=== PATIENT | female | born 1960 | race Caucasian/White ===

== ENCOUNTER → 2020-01-25 08:16 | Outpatient (CLI) | payer OTHER, SELFPAY ==
--- NOTE | ~2020-01-25 | CT_ITS ---
EXAMINATION: CT sinus wo con DATE: 01/25/2020 08:39 INDICATION: Chronic sinusitis TECHNIQUE: Computed tomography (CT) of the paranasal sinuses was performed without intravenous contra st. The dose-length product was 287.97 mGy-cm. Automated exposure control and iterative reconstructio n technique were employed. COMPARISON: CT dated 04/03/2011 FINDINGS: There is mild mucosal thickening of the frontal, ethmoid, maxillary and sphenoid sinuses. N o air-fluid levels. No significant mucoperiosteal reaction. There is rightward nasal septal deviation . Ostiomeatal pain and units appear surgically absent. Mastoids are pneumatized. IMPRESSION: 1. Mild pansinusitis, likely chronic. Reviewed, dictated and finalized at location A.
== END ==
PROVIDERS: Visit Provider Otolaryngology
DX: J32.9 Chronic sinusitis, unspecified (principal)
CPT/HCPCS: 70486

== ENCOUNTER → 2020-12-09 10:48 | Outpatient (CLI) | payer OTHER, SELFPAY ==
--- NOTE | ~2020-12-09 | MM_ITS ---
EXAMINATION: MM screening shayla BI w renaldo HISTORY: Screening TECHNIQUE: Craniocaudal and mediolateral oblique 3-D tomosynthesis images were obtained and synthetic 2-D images were generated. CAD analysis was submitted and interpreted. COMPARISON: No prior mammogram is available for comparison at this institution. BREAST PARENCHYMAL COMPOSITION: There are scattered areas of fibroglandular density. FINDINGS: There are bilateral breast asymmetries and small masses in both breasts. There are no suspi cious calcifications in either breast. IMPRESSION: 1. Bilateral breast asymmetries/masses. 2. Additional mammographic views and possible breast ultrasound are recommended. BI-RADS Category 0: Incomplete: Needs additional imaging evaluation. Reviewed, dictated and finalized at location A. IMPRESSION: 1. Bilateral breast asymmetries/masses. 2. Additional mammographic views and possible breast ultrasound are recommended . BI-RADS Category 0: Incomplete: Needs additional imaging evaluation.
--- NOTE | ~2020-12-09 | DEXA_ITS ---
Bone Density Report Name: Marita Sepulveda Age: 60 Sex: Female Ethnicity: White Date of : 1960 Indication: postmenopausal; screening for osteoporosis; hysterectomy; Referring Provider: TERESA, AZRA Lee Study: Bone densitometry was performed. Exam Date: December 09, 2020 Accession number: [id number] Bone Density: Region BMD T-score Z-score Classification AP Spine (L1-L4) 0.763 -2.6 -1.1 Osteoporosis Femoral Neck (Left) 0.765 -0.8 0.6 Normal Total Hip (Left) 0.833 -0.9 0.1 Normal Femoral Neck (Right) 0.694 -1.4 -0.1 Osteopenia Total Hip (Right) 0.797 -1.2 -0.2 Osteopenia Total Hip Mean 0.815 -1.1 -0.1 Osteopenia World Health Organization criteria for BMD impression classify patients as: Normal (T-score at or above -1.0), Osteopenia (T-score between -1.0 and -2.5), or Osteoporosis (T-score at or below -2.5). 10-year Fracture Risk: FRAX not reported because: Some T-score for Spine Total or Hip Total or Femoral Neck at or below -2.5 Clinical Information Provided by Patient: Has used the following medications: Vitamin D, Calcium Has the following medical conditions: Hysterectomy Patient maximum height was 65 Menopause Age: 44 No regular weight bearing exercise Drinks caffeinated beverages Onset of menses at age 15 Number of children 2 Impression: The patient has osteoporosis, based on the Total Spine T-score. Discussion: INCREASED RISK OF FRACTURE. BONE DENSITY IS UNDESIRABLY LOW AT ONE OR MORE SKELETAL SITES, CONSISTENT WITH POSTMENOPAUSAL OSTEOPOROSIS. This patient's lowest T-score meets the World Health Organization's (WHO) criteria for osteoporosis at one or more sites (T-score -2.5 or below). In untreated patients, the risk of osteoporotic fracture increases approximately two-fold for each 1.0 SD decrease in T-score. Low bone density is not the only risk factor for fracture; also consider factors such as patient's age, frailty or poor health, risk of falling, risk of injury, previous osteoporotic fracture, family history of osteoporosis, cigarette smoking, low body weight, etc. Not everyone with low bone mineral density has osteoporosis; osteomalacia and other metabolic bone disorders should also be considered. Patients who have osteoporosis should be evaluated for specific diseases and conditions (secondary causes) that may cause or contribute to bone loss. The [place] Association of Clinical Endocrinologists (AACE) and National Osteoporosis Foundation (NOF) recommend pharmacologic intervention for all postmenopausal women whose T-score is in this range. The patient should follow a healthful lifestyle (good nutrition with adequate calcium and vitamin D, and appropriate weight-bearing exercise). Follow-Up: Consider a repeat BMD and Vertebral Fracture Assessment (VFA) exam in 2 years or sooner if med
== END ==
PROVIDERS: PCP Internal Medicine; Visit Provider Internal Medicine
DX: Z12.31 Encounter for screening mammogram for malignant neoplasm of breast (principal); R92.8 Other abnormal and inconclusive findings on diagnostic imaging of breast; Z78.0 Asymptomatic menopausal state; M81.0 Age-related osteoporosis without current pathological fracture; M85.851 Other specified disorders of bone density and structure, right thigh; Z13.820 Encounter for screening for osteoporosis
CPT/HCPCS: 77063; 77067; 77080

== ENCOUNTER → 2021-01-12 07:37 | Outpatient (CLI) | payer OTHER, SELFPAY ==
--- NOTE | ~2021-01-12 | MMUS_ITS ---
EXAMINATION: MM diagnostic shayla RT w renaldo, US breast RT limited HISTORY: New 5 mm mass in upper outer quadrant right breast on 12/09/2020 screening mammogram TECHNIQUE: Additional 3-D tomosynthesis images of the right breast were performed and synthetic 2-D i mages were generated. CAD analysis was submitted and interpreted. High resolution upper inner quadran t right breast ultrasound was performed. COMPARISON: 12/09/2020 bilateral digital screening mammogram FINDINGS: MAMMOGRAPHIC FINDINGS: There is a 5 mm circumscribed opacity in the upper inner quadrant of the right breast. ULTRASOUND: There is anti-parallel mildly irregular hypoechoic lesion at 1:00 3 cm from the nipple. The lesion me asures up to 4.9 mm in depth and 4 mm transverse dimension. There is no posterior shadowing. There is a nearby vessel on color flow imaging. Ultrasound-guided aspiration attempt should be made. If this fails to evacuate, then ultrasound-guided biopsy should be performed. IMPRESSION: 1. Anti-parallel mildly irregular 4.9 mm hypoechoic lesion at 1:00 3 cm from nipple 2. Ultrasound-guided aspiration attempt should be made; if this fails to aspirate, then immediate ult rasound-guided biopsy should be performed. BI-RADS category 4, suspicious findings. Reviewed, dictated and finalized at location A. IMPRESSION: 1. Anti-parallel mildly irregular 4.9 mm hypoechoic lesion at 1:00 3 cm from ni pple 2. Ultrasound-guided aspiration attempt should be made; if this fails to aspira te, then immediate ultrasound-guided biopsy should be performed. BI-RADS category 4, suspicious findings.
== END ==
PROVIDERS: PCP Internal Medicine; Visit Provider Internal Medicine
DX: R92.8 Other abnormal and inconclusive findings on diagnostic imaging of breast (principal)
CPT/HCPCS: 76642; 77061; 77065; G0279

== ENCOUNTER 2021-02-01 08:56 | Outpatient (CLI) | payer OTHER, SELFPAY ==
--- NOTE | ~2021-02-01 | US_ITS ---
EXAMINATION: US_BCARIMG_US DATE: 02/01/2021 10:22 CDT INDICATION: Abnormal mass seen on prior examination. TECHNIQUE: Survey imaging of the right breast was performed. The cyst(s) at the 1:00 position 3 cm f rom the nipple was targeted for aspiration. The procedure and its risk and benefits were discussed w ith the patient. Risks included but were not limited to pain, bleeding and infection. The patient ve rbalized understanding and provided written consent. A time-out was performed to document the patient's name, date of , and site of procedure. The u pper outer quadrant of the patient's right breast was prepped and draped in usual sterile fashion. 1 % lidocaine was used for local anesthesia. Utilizing ultrasound guidance, a 18-gauge needle was adva nced into the lesion in the right breast. Aspiration was performed. The patient tolerated procedure without immediate complication. Sterile bandages were applied over t he aspiration site(s).] FINDINGS: Successful ultrasound-guided aspiration of 5 mm cyst. Clear fluid obtained with complete ev acuation of the cyst during aspiration. IMPRESSION: 1. Complete evacuation of 5 mm right breast cyst without complication. Routine yearly screening mammogram and regular clinical breast examination are recommended. BI-RADS CATEGORY 2 - BENIGN FINDINGS Reviewed, dictated and finalized at location A.
== END 2021-02-01 08:57 | disposition home or self-care (01) ==
PROVIDERS: PCP Internal Medicine; Visit Provider Internal Medicine
DX: N60.01 Solitary cyst of right breast (principal)
CPT/HCPCS: 19000; 76942

== ENCOUNTER 2022-10-04 01:55 | Day surgery (SDC) | payer OTHER, SELFPAY ==
[2022-09-14 15:26] VITALS: BMI 26.0
--- NOTE | 2022-10-03 19:49 | PM.HPGS ---
History of Present Illness History of Present Illness Consent: Risks, benefits, and alternatives have been discussed and questions answered. Patient agrees to proceed with procedure. Chief complaint: neoplasm screening, GERD Narrative: Marita Sepulveda is a 62 year old female with persistent heartburn, and due for colon cancer screening, Father had colon Ca. She did have polyps at 1 time also. She suffers from a great deal of abdominal bloating. Her abdomen gets very tight. She does not pass much gas or belch however. She does not use a CPAP machine. About 3 hours after meal she will get severe indigestion in the mid chest. She does take doxycycline twice a day but does not have odynophagia. Her weight is stable Review of Systems Review of Systems: All systems reviewed & are unremarkable except as noted in HPI and below PMFSH Social History Social History Smoking status: Never smoker Alcohol intake: current Alcohol use details: on occaison Substance use: never Substance use type: does not use Living arrangements: with family Spiritual care concerns: No Meds Home Medications and Allergies Home Medications Medication Instructions Recorded Confirmed Type Fish Oil 1 tab-cap BYMOUTH DAILY 09/14/22 10/04/22 History Vitamin D3 1 tab-cap PO DAILY 09/14/22 10/04/22 History calcium acetate-magnesium carb 1 tab-cap PO DAILY 09/14/22 10/04/22 History doxycycline hyclate 20 mg tablet 20 mg PO BID 09/14/22 10/04/22 History multivitamin 1 tab-cap PO DAILY 09/14/22 10/04/22 History Allergies Allergy/AdvReac Type Severity Reaction Status Date / Time No Known Allergies Allergy Verified 10/04/22 08:12 Exam Const: General: alert Orientation/consciousness: patient oriented x3 Resp: Auscultation: clear to auscultation bilaterally Cardio: Rhythm: regular rhythm GI: GI Palp: Yes Soft to palpation and No Tenderness to palpation present (GI) Neuro: General: patient oriented x3 Assessment and Plan Assessment and plan (1) GERD (gastroesophageal reflux disease): Code(s): K21.9 - Gastro-esophageal reflux disease without esophagitis Status: Acute Assessment and Plan: EGD with possible biopsy or dilatation or cautery. (2) Colon cancer screening: Code(s): Z12.11 - Encounter for screening for malignant neoplasm of colon Status: Acute Assessment and Plan: Colonoscopy with possible biopsy or polypectomy or cautery or injection of substances.
[2022-10-04 08:13] VITALS: BP 163/78; PULSE 62; RESP 16; TEMP 36.8; O2SAT 98; BMI 25.2
[2022-10-04] MEDS: LACTATED RINGERS 1,000 ML 150 ML IV CONT (08:21)
--- NOTE | 2022-10-04 09:04 | P.PNAN_ITS ---
Anes - Initial Pre Proc Eval Procedure: Operation Date: 10/04/22 09:30 Proposed Procedures p Esophagogastroduodenoscopy & Screening Colonoscopy - Lamonte Butcher MD Date/Time: 10/04/22 09:04 Surgeon: Lamonte Butcher MD Pre Op Diagnosis: neoplasm screening, GERD Patient Data Age: 62 Gender: F Height: 1.65 m Weight: 68.9 kg Last Vital Signs Temp 98.2 F 10/04/22 08:13 Pulse 62 10/04/22 08:13 Resp 16 10/04/22 08:13 BP 163/78 H 10/04/22 08:13 Pulse Ox 98 10/04/22 08:13 O2 Del Method Room Air 10/04/22 08:13 Allergies Allergy/AdvReac Type Severity Reaction Status Date / Time No Known Allergies Allergy Verified 10/04/22 08:12 Home Medications Medication Instructions Recorded Confirmed Type Fish Oil 1 tab-cap BYMOUTH DAILY 09/14/22 10/04/22 History Vitamin D3 1 tab-cap PO DAILY 09/14/22 10/04/22 History calcium acetate-magnesium carb 1 tab-cap PO DAILY 09/14/22 10/04/22 History doxycycline hyclate 20 mg tablet 20 mg PO BID 09/14/22 10/04/22 History multivitamin 1 tab-cap PO DAILY 09/14/22 10/04/22 History Patient hx anesthesia problems: none Family hx anesthesia problems: none Results Review: All pre-operative results and documents have been reviewed as part of the pre- operative evaluation. [facility] Social History Social History Smoking status: Never smoker Alcohol intake: current Alcohol use details: on occaison Substance use: never Substance use type: does not use Living arrangements: with family Spiritual care concerns: No Anes - Eval Final PreProcedure Day of Procedure 10/04/22 09:04 Patient weight: normal Heart: regular rate and rhythm Lungs: clear to auscultation Airway: Mallampati scale class II Neurological: alert and oriented Last oral intake: >/= 8 hours ASA classification: II Emergent: no Anesthetic plan: proceed Anesthesia type and monitoring: general GIVS and standard monitoring Results Review: All pre-operative results and documents have been reviewed as part of the pre- operative evaluation. Informed Consent: The patient's anesthetic plan and its attendant risks and benefits were discussed with the patient/family/POA. Questions were solicited and answers provided to the satisfaction of the patient/family/POA.
[2022-10-04] MEDS: BENZOCAINE (*SP) 60 ML SPRAY CAN (HURRICAINE) 1 SPRAY MUCOUS MEM (09:16)
--- NOTE | 2022-10-04 09:45 | SUR.OPER ---
EGD START: 923; END: 928. COLONOSCOPY START: 935; END: 943.
[2022-10-04 09:47] VITALS: BP 152/74; PULSE 59; RESP 20; O2SAT 99
[2022-10-04 09:57] VITALS: BP 148/95; PULSE 59; RESP 22; O2SAT 99
[2022-10-04 10:07] VITALS: BP 167/96; PULSE 53; RESP 20; O2SAT 99
== END 2022-10-04 10:25 | disposition home or self-care (01) ==
PROVIDERS: PCP Internal Medicine; Visit Provider Internal Medicine Gastroenterology
PROC: 0DJ08ZZ Inspection of Upper Intestinal Tract, Via Natural or Artificial Opening Endoscopic (ICD-10-PCS; CPT 43235; principal; 2022-10-04 09:30)
DX: Z12.11 Encounter for screening for malignant neoplasm of colon (principal); K57.30 Diverticulosis of large intestine without perforation or abscess without bleeding; K64.8 Other hemorrhoids; Z80.0 Family history of malignant neoplasm of digestive organs; K21.9 Gastro-esophageal reflux disease without esophagitis; R11.0 Nausea
CPT/HCPCS: 45378; 43239; 87081; 88305; J2704; J7120

== ENCOUNTER 2022-10-18 09:35 | Outpatient (CLI) | payer OTHER, SELFPAY ==
--- NOTE | ~2022-10-18 | US_ITS ---
US abdomen complete EXAMINATION: US Abdomen Complete INDICATION: Abdominal pain PROCEDURE: Realtime High Resolution abdomen ultrasound. COMPARISON: No prior studies for comparison FINDINGS: There is a 7 mm gallbladder polyp. No gallstones, gallbladder wall thickening or pericholec ystic fluid. Common bile duct measures 6 mm. Liver echotexture within normal limits without focal mass. There is a liver cyst measuring 1.4 cm. Pa ncreas within normal limits. Pancreatic tail is obscured by bowel gas. Spleen is unremarkeable. Saji al echotexture is within normal limits bilaterally without hydronephrosis, contour deforming mass or renal stone. Right kidney measures 10.7 cm. Left kidney measures 10.7 cm. Visualized aspects of the aorta and IVC are within normal limits. Portal vein is patent. No sonograph ic Ashley's sign indicated by the technologist. IMPRESSION: 1: Gallbladder polyp measuring 7 mm. Reviewed, dictated and finalized at location L.
== END 2022-10-18 09:36 | disposition home or self-care (01) ==
PROVIDERS: PCP Internal Medicine; Visit Provider Internal Medicine Gastroenterology
DX: R10.9 Unspecified abdominal pain (principal); K82.4 Cholesterolosis of gallbladder
CPT/HCPCS: 76700

== ENCOUNTER → 2023-06-27 10:13 | Outpatient (CLI) | payer OTHER, SELFPAY ==
--- NOTE | ~2023-06-27 | MM_ITS ---
EXAMINATION: MM screening [facility] BI w renaldo HISTORY: Screening TECHNIQUE: Craniocaudal and mediolateral oblique 3-D tomosynthesis images were obtained and synthetic 2-D images were generated. CAD analysis was submitted and interpreted. COMPARISON: Comparison to multiple prior studies sequentially, with oldest reviewed study dated 11/27. BREAST PARENCHYMAL COMPOSITION: Not dense: There are scattered areas of fibroglandular density. FINDINGS: Stable benign-appearing mass upper central aspect of the right breast. There is no evidence of suspicious mass, calcification, or architectural distortion to suggest malignancy in either breas t. There has been no suspicious interval change. IMPRESSION: 1. No mammographic evidence of malignancy. 2. Recommend routine screening mammography in one year. BI-RADS Category 2: Benign finding(s). Reviewed, dictated and finalized at location A. [employer]
== END ==
PROVIDERS: PCP Internal Medicine; Visit Provider Internal Medicine
DX: Z12.31 Encounter for screening mammogram for malignant neoplasm of breast (principal)
CPT/HCPCS: 77063; 77067

== ENCOUNTER 2024-05-02 09:52 | Outpatient (CLI) | payer OTHER, SELFPAY ==
--- NOTE | ~2024-05-02 | DEXA_ITS ---
Bone Density Report Name: CHEYENNE GUSMAN Age: 63 Sex: Female Ethnicity: White Date of : 1960 Indication: postmenopausal; screening for osteoporosis; hysterectomy; Referring Provider: KAJAL*, AZRA Lee Study: Bone densitometry was performed. Exam Date: May 02, 2024 Accession number: [id number] Bone Density: Region BMD T-score Z-score Classification AP Spine(L1-L4) 0.753 -2.7 -0.9 Osteoporosis Femoral Neck (Left) 0.721 -1.1 0.3 Osteopenia Total Hip (Left) 0.877 -0.5 0.7 Normal Femoral Neck (Right) 0.715 -1.2 0.3 Osteopenia Total Hip (Right) 0.878 -0.5 0.7 Normal Total Hip Mean 0.878 -0.5 0.7 Normal World Health Organization criteria for BMD impression classify patients as: Normal (T-score at or above -1.0), Osteopenia (T-score between -1.0 and -2.5), or Osteoporosis (T-score at or below -2.5). 10-year Fracture Risk: FRAX not reported because: Some T-score for Spine Total or Hip Total or Femoral Neck at or below -2.5 Clinical Information Provided by Patient: Has used the following medications: Vitamin D, Calcium Has the following medical conditions: Hysterectomy Patient maximum height was 64.5 Menopause Age: 44 No regular weight bearing exercise Drinks caffeinated beverages Onset of menses at age 15 Number of children 2 Impression: The patient has osteoporosis, based on the Total Spine T-score. Discussion: INCREASED RISK OF FRACTURE. BONE DENSITY IS UNDESIRABLY LOW AT ONE OR MORE SKELETAL SITES, CONSISTENT WITH POSTMENOPAUSAL OSTEOPOROSIS. This patient's lowest T-score meets the World Health Organization's (WHO) criteria for osteoporosis at one or more sites (T-score -2.5 or below). In untreated patients, the risk of osteoporotic fracture increases approximately two-fold for each 1.0 SD decrease in T-score. Low bone density is not the only risk factor for fracture; also consider factors such as patient's age, frailty or poor health, risk of falling, risk of injury, previous osteoporotic fracture, family history of osteoporosis, cigarette smoking, low body weight, etc. Not everyone with low bone mineral density has osteoporosis; osteomalacia and other metabolic bone disorders should also be considered. Patients who have osteoporosis should be evaluated for specific diseases and conditions (secondary causes) that may cause or contribute to bone loss. The [place] Association of Clinical Endocrinologists (AACE) and National Osteoporosis Foundation (NOF) recommend pharmacologic intervention for all postmenopausal women whose T-score is in this range. The patient should follow a healthful lifestyle (good nutrition with adequate calcium and vitamin D, and appropriate weight-bearing exercise). Follow-Up: Consider a repeat BMD and Vertebral Fracture Assessment (VFA) exam in 2 years or sooner if medically necessary, to reassess this patient's status. Reported by: SONIA on 05/02/2024 10:20:00 AM. Reviewed, dictated and finalized at location A. NEO
== END 2024-05-02 09:53 | disposition home or self-care (01) ==
LOC: ANHIMG 09:55
PROVIDERS: PCP Internal Medicine; Visit Provider Internal Medicine
DX: M81.0 Age-related osteoporosis without current pathological fracture (principal); M85.89 Other specified disorders of bone density and structure, multiple sites; Z13.820 Encounter for screening for osteoporosis
CPT/HCPCS: 77080

== ENCOUNTER 2024-07-06 09:51 | Outpatient (CLI) | payer MEDICARE, SELFPAY | END 2024-07-06 09:52 | disposition home or self-care (01) | LOC: MICIMG 09:53 | PROVIDERS: PCP Internal Medicine; Visit Provider Internal Medicine | DX: Z12.31 Encounter for screening mammogram for malignant neoplasm of breast (principal); N63.24 Unspecified lump in the left breast, lower inner quadrant; R92.8 Other abnormal and inconclusive findings on diagnostic imaging of breast | CPT/HCPCS: 77063; 77067 ==

== ENCOUNTER 2024-07-28 10:13 | Outpatient (CLI) | payer MEDICARE, SELFPAY ==
--- NOTE | ~2024-07-28 | MMUS_ITS ---
EXAMINATION: MM diagnostic shayla LT w renaldo, US breast LT limited HISTORY: 64-year-old woman with a family history of breast cancer presents for diagnostic evaluation of a lower inner left breast asymmetry, seen on screening mammography dated 07/06/2024 TECHNIQUE: Additional 3-D tomosynthesis images of the left breast were performed and synthetic 2-D im ages were generated. CAD analysis was submitted and interpreted. High resolution limited left breast ultrasound was performed. COMPARISON: 07/06/2024 and dating back to 11/27/2016 BREAST PARENCHYMAL COMPOSITION:Not Dense. There are scattered areas of fibroglandular density. FINDINGS: MAMMOGRAPHIC FINDINGS: Within the lower inner left breast mass partially effaces on spot compression for which a summation a rtifact is suspected (overlapping fibroglandular tissues). This is located approximately 7 cm from the nipple for which focused ultrasound will be performed. ULTRASOUND: At the 8:00 position of the left breast approximately 3 cm from the nipple is a well-circumscribed fo cus of decreased echogenicity measuring 2.7 x 3.3 x 2.4 mm, which is an incidental finding and does n ot correspond to the abnormality seen as more conspicuous on screening mammography. This is a morphol ogically benign finding for which no further follow-up is needed. At the 9:00 position of the left breast approximately 3 cm from the nipple are multiple anechoic avas cular well-circumscribed foci with increased through transmission for which simple cysts are suspecte d and for which no further follow-up is needed. These findings also do not correspond to the abnormality described as more conspicuous on screening m ammography. At the 9:00 position of the left breast approximately 4 cm from the nipple is a well-circumscribed, a vascular focus of decreased echogenicity measuring 3.0 x 3.3 x 1.8 mm, similar in morphology to the 8 :00 finding, for which no further follow-up is needed. These findings also do not correspond to the abnormality described as more conspicuous on screening m ammography. Sonographic evaluation of the remainder of the lower inner left breast demonstrates benign fibrogland ular elements without a cystic or solid lesion of concern. IMPRESSION: No mammographic/tomographic or sonographic evidence to suggest the presence of malignancy. Findings seen on screening mammography which likely represent a summation artifact (overlapping fibro glandular tissues) for which no further follow-up is needed. Resumption of yearly mammography is recommended. BI-RADS Category 2: Benign finding(s). Reviewed, dictated and finalized at location A. IMPRESSION: No mammographic/tomographic or sonographic evidence to suggest the presence of malignancy. Findings seen on screening mammography which likely represent a summation artif act (overlapping fibroglandular tissues) for which no further follow-up is need ed. Resumption of yearly mammography is recommended. BI-RADS Category 2: Benign finding(s).
--- OUTSIDE RECORDS SUMMARY | 2024-07-28 12:02 | XMS_ITS | Referral Summary ---
Author Organization [facility] [address] [place] [id number] Care Team Providers Care [employer] Developer Name Role Phone Morgan Fung MD Primary Care Provider Allergies No known active allergies Medications doxycycline (PERIOSTAT) 20 mg tablet Take 1 tablet (20 mg total) by mouth 2 (two) times a day 10/09/2022 Active benzonatate (TESSALON) 100 mg capsuleIndicati ons:Cough Take 1 capsule (100 mg total) by mouth 3 (three) times a day as needed for cough 21 capsule 11/04/2022 Active Active Problems No known active problems Social History Tobacco Use Types Packs/Day Years Used Date Smoking Tobacco: Never Assessed Comments No Sex and Gender Information Value Date Recorded Sex Assigned at Not on file 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 Gender Identity Not on file Sexual Orientation Not on file Last Filed Vital Signs Vital Sign Reading Time Taken Comments Blood Pressure 180/102 11/04/2022 8:14 AM CDT Pulse 73 11/04/2022 8:14 AM CDT Temperature 37 C (98.6 F) 11/04/2022 8:14 AM CDT Respiratory Rate - - Oxygen Saturation - - Inhaled Oxygen Concentration - - Weight 69.9 kg (154 lb 3.2 oz) 11/04/2022 8:14 A M CDT Height 170 cm (5' 6.93 ) 11/04/2022 8:14 AM CDT Body Mass Index 24.2 11/04/2022 8:14 AM CDT Plan of Treatment Not on file Procedures Procedure Name Priority Date/Time Associated Diagnosis Comments SCREENING MAMMOGRAM Routine 08/03/2014 1 0:22 AM CDT from Last 3 Months or Most Recently Relevant to Health Maintenance Results * Screening Mammogram (08/03/2014 10:22 AM CDT) Anatomical Region Laterality Modality Breast N/A Mammography 08/03/2014 10:2 2 AM CDT Narrative 08/03/2014 9:21 PM CDT ERIN KNAPP M.D. FINAL REPORT ACC# Date Time Exam [id number] Aug 03, 2014 10:22:00 [facility] [address] Screening Mamm Bilat Technologist(s): Carito Hernandez; ; EXAMINATION: Mammogram Technique: Bilateral Full-Field Digital Screening Mammogram was performed. Views obtained: bilateral craniocaudal and bilateral mediolateral oblique. Computer Aided Detection was performed with Plinga.3 version 9.3. Mammogram Findings: The present examination has been compared to prior imaging studies performed at [facility] on 04/27/2009, and at [facility] on 12/04/2011 and 11/08/2010. There are scattered fibroglandular densities. There is no suspicious abnormality in either breast. IMPRESSION: Annual screening mammography is recommended. OVERALL FINAL ASSESSMENT: BI-RADS CATEGORY 1: Negative. Requested By: Dictated By: ERIN KNAPP M.D. on Aug 03 2014 9:21P This document has been electronically signed by: ERIN KNAPP M.D. on Aug 03 2014 9:21P [id number] Procedure Note Provider, MD tSanley - 08/29/2016 ERIN KNAPP M.D. FINAL REPORT ACC# Date Time Exam [id number] Aug 03, 2014 10:22:00 [facility] [address] Screening Mamm Bilat Technologist(s): Carito Hernandez; ; EXAMINATION: Mammogram Technique: Bilateral Full-Field Digital Screening Mammogram was performed. Views obtained: bilateral craniocaudal and bilateral mediolateral oblique. Computer Aided Detection was performed with [employer] 1.3 version 9.3. Mammogram Findings: The present examination has been compared to prior imaging studies performed at [facility] on 04/27/2009, and at [facility] on 12/04/2011 and 11/08/2010. There are scattered fibroglandular densities. There is no suspicious abnormality in either breast. IMPRESSION: Annual screening mammography is recommended. OVERALL FINAL ASSESSMENT: BI-RADS CATEGORY 1: Negative. Requested By: Dictated By: ERIN KNAPP M.D. on Aug 03 2014 9:21P This document has been electronically signed by: ERIN KNAPP M.D. on Aug 03 2014 9:21P [id number] Historical Provider MD [facility] M[facility] PROCEDURES Yulissa l Result from Last 3 Months or Most Recently Relevant to Health Maintenance Insurance [facility] [id number] Care Teams [employer] Developer Relationship Specialty Start Date End Date Morgan Fung MD [address] [place] [address] PCP - General Internal Medicine 11/04/22
--- OUTSIDE RECORDS SUMMARY | 2024-07-28 12:02 | XMS_ITS | Clinical Summary ---
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 Gender Identity Not on file Sexual Orientation Not on file Obstetrics History Last Filed Vital Signs Vital Sign Reading [...] 11/04/2022 8:14 AM CDT Plan of Treatment Health Maintenance Due Date Last Done Comments Cervical Cancer Screening 1959 Colon Cancer Screening-Colonoscopy 1959 Depression Screening 1959 Fall Risk Assessment 1959 Hepatitis C Screening 1959 Osteoporosis Screening-Bone Density Scan 1959 Hepatitis B Screening 1977 Pneumococcal vaccine 65+ (1 of 1 - PCV) 2009 Breast Cancer Screening-Mammogram 08/04/2015 015 Zoster Vaccine (2 of 2) 05/12/2020 03/17/2020 Covid-19 Vaccine (6 - 2023-2 5 season) 2024 03/09/2022, 10/12/2021, 04/03/2021, Additional history exists Influenza Vaccine (#1) 2024 02/22/2022, 2019 Well Visit 65+ 2024 DTaP/Tdap/Td Vaccine (2 - Td or Tdap) 11/23/2029 11/24/2019 Procedures Procedure Name Priority Date/Time Associated Diagnosis Comments SCREENING MAMMOGRAM Routine 08/03/2014 1 0:22 AM CDT from Last 3 Months or Most Recently Relevant to Health Maintenance Results * Screening Mammogram (08/03/2014 10:22 AM CDT) Anatomical Region Laterality Modality Breast N/A Mammography 08/03/2014 10:2 2 AM CDT Narrative 08/03/2014 9:21 PM CDT ERIN KNAPP M.D. FINAL REPORT ACC# Date Time Exam [id number] Aug 03, 2014 10:22:00 [facility] [id number] Screening Mamm Bilat Technologist(s): Carito Hernandez; ; EXAMINATION: Mammogram Technique: Bilateral Full-Field Digital Screening Mammogram was performed. Views obtained: bilateral craniocaudal and bilateral mediolateral oblique. Computer Aided Detection was performed with Pavlok.3 version 9.3. Mammogram Findings: The present examination has been compared to prior imaging studies performed at [facility] on 04/27/2009, and at [facility] on 12/04/2011 and 11/08/2010. There are scattered fibroglandular densities. There is no suspicious abnormality in either breast. IMPRESSION: Annual screening mammography is recommended. OVERALL FINAL ASSESSMENT: BI-RADS CATEGORY 1: Negative. Requested By: Dictated By: ERIN KNAPP M.D. on Aug 03 2014 9:21P This document has been electronically signed by: ERIN KNAPP M.D. on Aug 03 2014 9:21P [id number] Procedure Note Provider, MD Stanley - 08/29/2016 ERIN KNAPP M.D. FINAL REPORT ACC# Date Time Exam [id number] Aug 03, 2014 10:22:00 [facility] [id number] Screening Mamm Bilat Technologist(s): Carito Hernandez; ; EXAMINATION: Mammogram Technique: Bilateral Full-Field Digital Screening Mammogram was performed. Views obtained: bilateral craniocaudal and bilateral mediolateral oblique. Computer Aided Detection was performed with Pavlok.3 version 9.3. Mammogram Findings: The present examination has been compared to prior imaging studies performed at [facility] on 04/27/2009, and at [facility] on 12/04/2011 and 11/08/2010. There are scattered fibroglandular densities. There is no suspicious abnormality in either breast. IMPRESSION: Annual screening mammography is recommended. OVERALL FINAL ASSESSMENT: BI-RADS CATEGORY 1: Negative. Requested By: Dictated By: ERIN KNAPP M.D. on Aug 03 2014 9:21P This document has been electronically signed by: ERIN KNAPP M.D. on Aug 03 2014 9:21P [id number] Historical Provider MD [facility] PROCEDURES Yulissa l Result from Last 3 Months or Most Recently Relevant to Health Maintenance Insurance [facility] [id number] Care Teams Greenskeeper Laborer Relationship Specialty Start Date End Date Morgan Fung MD [address] [facility] [address] [place] [address] PCP - General Internal Medicine 11/04/22
--- OUTSIDE RECORDS SUMMARY | 2024-07-28 12:02 | XMS_ITS | Encounter Summary ---
Author Organization [employer] Address [address] [place] [address] Care Team Providers Care It Analyst Name Role Phone Unavailable Primary Care Provider Unavailabl e Encounter Details Date Type Department Care Team (Late st Contact Info) Description 10/04/2004 Outpatient Historical [facility] Support Serv. ([facility]) [address] 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
--- OUTSIDE RECORDS SUMMARY | 2024-07-28 12:02 | XMS_ITS | Clinical Summary ---
Author Organization [facility] Address [address] 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 Gender Identity Not on file Sexual Orientation Not on file Plan of Treatment Health Maintenance Due Date Last Done Comments DTAP/TDAP/TD VACCINES (1 - Tdap) 1978 PAP SMEAR 1989 COLORECTAL SCREENING 2004 Colorectal Cancer Screening 2004 FIT-DNA Q 3 years 2004 FIT/FOBT Q 1 year 2004 Flex Sig/CT Colonography Q 5 years 2004 PNEUMOCOCCAL VACCINE 50+ YEARS (1 of 1 - PCV) 2009 ZOSTER VACCINE (1 of 2) 2009 BREAST CANCER SCREENING 11/27/2017 11/28/19 17, 11/27/2016 INFLUENZA VACCINE (#1) 2023 OSTEOPOROSIS SCREENING 2024 RSV VACCINE (60+ or ) (1 - 1-dose 75+ series) 2034 PNEUMOCOCCAL VACCINE 0-49 YEARS Aged Out No longer eligible b ased on patient's age to complete this topic Insurance RX [facility] [employer]
--- OUTSIDE RECORDS SUMMARY | 2024-07-28 12:02 | XMS_ITS | CONTINUITY OF CARE DOCUMENT ---
Author Name hever kathleen Address Unknown Organization [facility] Address [address] [place] [address] Phone [phone] Care Team Providers Care Cash Clerk Name Role Phone hever kathleen Unavailable Unavailable INSURANCE PROVIDERS Payer name Policy type / Coverage type Tate red libertarian ID [employer]NA CHOICE POS II Commercial insurance company [id number]
--- OUTSIDE RECORDS SUMMARY | 2024-07-28 12:02 | XMS_ITS | Encounter Summary ---
Author Organization [employer] Address 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 Gender Identity Not on file Sexual Orientation Not on file documented as of this encounter Plan of Treatment Not on file documented as of this encounter Procedures Procedure Name Priority Date/Time Associated Diagnosis Comments POC , URINE Routine 10/10/2004 8:10 AM CDT HEMOGLOBIN AND HEMATOCRIT Routine 10/04/2004 8:43 AM CDT documented in this encounter Results * POC , URINE (10/10/2004 8:10 AM CDT) HCG QUAL URINE Negative Negative INTER FACE SYSTEM SPECIFIC GRAVITY UA 1.020 1.001 - 1.035 INTERFACE SYSTEM 10/10/2004 8:10 AM CDT Jaspreet Greenwood MD POINT OF CARE TESTING Final Shanelle aiken INTERFACE SYSTEM Refer to clinic/hospital department * HEMOGLOBIN AND HEMATOCRIT (10/04/2004 8:43 AM CDT) HEMOGLOBIN 12.2 11.8 - 14.8 g/dL INTERFACE SYSTEM HEMATOCRIT 38.1 35.5 - 44.0 % INTERFACE SYSTEM 10/04/2004 8:43 AM CDT Jaspreet Greenwood MD HEMATOLOGY ORDERABLES Final Shanelle aiken INTERFACE SYSTEM Refer to clinic/hospital department documented in this encounter Visit Diagnoses Diagnosis Endometrial hyperplasia, unspecified- Primary documented in this encounter
--- OUTSIDE RECORDS SUMMARY | 2024-07-28 12:03 | XMS_ITS | Data Portability ---
Author Organization [place] [facility] [place], Main Office Address [address] [place] [address] Assessment No assessment recorded. Plan of Treatment Reminders Order Date Submit Date Provider Last Modified By Organization Details Last Modified Time Details Appointments None recorded. Lab lipid panel, serum 2023 024 [facility], [address] [place] [address], [place], [address], 09:43:56 CMP, serum or plasma 2023 024 [email or web address] [facility], [address] [place] [address], [address], 09:43:56 vitamin D, 25-hydroxy , total, serum 2023 024 [email or web address] [facility], [address] [place] [address], [place], [address], 14:21:20 CBC w/ auto diff 2023 024 [id number] [facility], [address] [place] [address], [place], [address], 4 14:21:20 TSH, ultra-sens itive, serum 2023 024 [email or web address] [facility], [address] [place] [address], [address], 4 14:21:20 unlisted lab - T4, free 2023 024 [email or web address] [facility], [address] [place] [address], [place], [address], 4 14:21:20 CMP, serum or plasma 2023 024 [email or web address] [facility], [address] [facility], [place], [address], 4 14:21:20 lipid panel, serum 2023 024 [id number] [facility], [address] [facility], [place], [address], 4 14:21:20 vitamin D, 25-hydroxy , total, serum 2022 023 [email or web address] [facility], [address], [place], [address], 3 10:00:50 CBC w/ auto diff 2022 023 [email or web address] [facility], [address], [place], [address], 3 10:00:49 lipid panel, serum 2022 023 [email or web address] [facility], [address], [place], [address], 3 10:00:49 CMP, serum or plasma 2022 023 [email or web address] [facility], [address], [place], [address], 3 10:00:49 TSH, serum or plasma 2022 023 [email or web address] [facility], [address], [place], [address], 3 10:00:50 T4, free, serum 2022 023 [email or web address] [facility], [address], [place], [address], 10:00:50 Referral None recorded. Procedures None recorded. Surgeries None recorded. Imaging None recorded. Medication Orders None recorded. Patient TargetsNo targets recorded. Patient Instructions Encounter Date Encounter Id Patient Instructions Last Modified By Organization Details Last Modified Time 08/28/2022 [id number] risk assessment* [email or web address] Not availabl e 08/28/2022 11:16:40 INFLUENZA VACCIN E TD/TDAP Recommended today, patient declined Ordered Pa tient will get at local pharmacy/health department PNEUMONIA VACCINE Ordered Recommended today, patient declined Patient will get at local pharmacy/health department Recommen ded at age 64 SHINGLES Ordered Recommended today, patient declined Patient will get at local pharmacy/health department MAMMOGRAM: Last Mammogram DEXA SCAN No screening necessary patient is up to date CERVICAL SCREENING/PELVIC EXAMINATION COLORECTAL SCREENING: Last Colonoscopy DEPRESSION SCREENING Negative BMI Overweight continue your current weight loss efforts try to lose 5% of your body weight NUTRITION Heart Healthy Diet PHYSICAL ACTIVITY Need more exercise/physical activity VISION ALCOHOL USE No alcohol use Occasional/Soci al Use TOBACCO USE non smoker LUNG CANCER SCREENING Non Smoker-not indicated SEXUALLY ACTIVE HEPATITIS C SCREENING Not indicated GLUCOSE SCREENING LIPID SCREENING [email or web address] Not available 08/28/2022 10:55:13 Wellness examination risk assessment stable. Follow-up for hypertension for-GERD -bloating symptoms and dyspnea on exertion. Will check blood work consisting of CBC, CMP, lipid, thyroid and vitamin-D level. Set up for mammogram and colonoscopy. Consider the possibility of doing an upper endoscopy as well because of associated history of discomfort in the recumbent position. Mammogram Colonoscopy and possible upper endoscopy for recurrent reflux symptomatology with chest pain [email or web address] Not available 08/28/2022 11:16:23 02/26/2023 [id number] Follow-up hypertension-GERD -vitamin-D deficiency all clinically stable. Instructed to take the immunizations as needed. Recommend following up in six months at which time repeat blood work.Standard immunizations of RSV, COVID, influenza and shingles as recommended. Will give a trial of some Linzess 72 mcg once daily in the morning see there is any improvement. Standard immunizations of RSV, COVID, influenza and shingles as recommended. Portions of the record may have been created with voice recognition software. Occasional wrong-word or s ound-a-like substitutions may have occurred due to the inherent limitations of voice recognition software. Read the chart carefully and recognize, using context, where substitutions have occurred. Next Appt: 6 Months Approximate Date: 08/25/2023 [email or web address] Not available 02/26/2023 11:06:02 08/27/2023 [id number] Essential hypertension, hyperlipidemia, low back pain. Continue with current Rx at this time. Check blood work in the form of CBC, CMP, lipid and thyroid. Also check a vitamin-D level. X-rays of the lumbosacral spine and pelvis. Is up-to-date on other testing. Follow-up in six months. X-ray lumbosacral spine and pelvis Next Appointment: 6 Months Approximate Date: 02/23/2024 Portions of the record may have been created with voice recognition software. Occasional wrong-word or s ound-a-like substitutions may have occurred due to the inherent limitations of voice recognition software. Read the chart carefully and recognize, using context, where substitutions have occurred. Not available 08/27/2023 11:31:54 02/25/2024 [id number] risk assessment* [email or web address] Not availabl e 02/25/2024 11:25:27 INFLUENZA VACCIN E Recommended today, but patient declined Ordered Pa tient will get at local pharmacy/health department TD/TDAP Recommended today, patient declined Ordered Pa tient will get at local pharmacy/health department PNEUMONIA VACCINE Ordered Recommended today, patient declined Patient will get at local pharmacy/health department Recommen ded at age 64 SHINGLES Ordered Recommended today, patient declined Patient will get at local pharmacy/health department MAMMOGRAM: Last Mammogram No screening necessary patient is up to date DEXA SCAN CERVICAL SCREENING/PELVIC EXAMINATION COLORECTAL SCREENING: Last Colonoscopy No screening necessary patient is up to date DEPRESSION SCREENING Negative BMI Overweight Appropri ate NUTRITION PHYSICAL ACTIVITY Need more exercise/physical activity VISION ALCOHOL USE No alcohol use Occasional/Soci al Use TOBACCO USE non smoker LUNG CANCER SCREENING Non Smoker-not indicated SEXUALLY ACTIVE HEPATITIS C SCREENING Not indicated GLUCOSE SCREENING LIPID SCREENING [email or web address] Not available 02/25/2024 11:00:25 Adult health examination risk assessment stable. Follow-up for hypertension and hyperlipidemia both clinically stable. Does need a repeat lipid panel because of being on the cholesterol medication. Will continue on current Rx. Also needs a bone density scan. Patient advised on FDA recommendations of a Influenza, RSV, COVID, pneumococcal, and Herpes Zoster immunizations. Follow-up in six months Additional Orders - Directives - Recommendations 1. bone density scan Follow Up: 6 Months Approximate Date: 08/23/2024 Portions of the record may have been created with voice recognition software. Occasional wrong-word or s ound-a-like substitutions may have occurred due to the inherent limitations of voice recognition software. Read the chart carefully and recognize, using context, where substitutions have occurred. [email or web address] Not available 02/25/2024 11:25:10 Reason for Referral None Reported. Results Created Date Observation Date Name Description Value Unit Range Abnormal Flag Note LastModifiedBy Organization Detail LastModifiedTime 12/10/1912/09/2020 MAMMO , scree nathaniel, digit al, bilat eral No observ ation record ed. [id number] [facility] [address], [place], [address], 07/04/2022 14:51:10 12/13/19 21 12/09/2020 MAMMO , scree nathaniel, digit al, bilat eral No observ ation record ed. [id number] [facility] [address], [place], [address], 07/04/2022 14:51:10 12/24/19 21 12/09/2020 MAMMO , scree nathaniel, digit al, bilat eral No observ ation record ed. [id number] [facility] [address], [place], [address], 07/04/2022 14:51:10 12/27/19 21 12/09/2020 MAMMO , scree nathaniel, digit al, bilat eral No observ ation record ed. [id number] [facility] [address], [place], [address], 07/04/2022 14:51:10 12/28/1912/09/2020 DEXA, axial skele ton No observ ation record ed. MIGRATION. [facility] [address], [place], [address], 07/04/2022 14:51:10 01/13/20 21 01/12/2021 MAMMO , diagn ostic , bilat eral No observ ation record ed. MIGRATION. [facility] [address], [place], [address], 07/04/2022 14:51:10 02/04/20 21 02/01/2021 US, breas t, bilat eral No observ ation record ed. MIGRATION. [facility] [address], [place], [address], 07/04/2022 14:51:10 10/19/19 23 10/18/2022 US, allie lovett r No observ ation record ed. [place] [id number], [place], [address], 10/18/2022 14:27:59 06/27/19 24 06/27/2023 MAMMO , scree nathaniel, digit al, bilat eral No observ ation record ed. [address] [facility] [address], [place], [address], 06/27/2023 14:03:11 06/27/19 24 06/27/2023 MAMMO , scree nathaniel, digit al, bilat eral No observ ation record ed. [address] [facility] [address], [place], [address], 06/27/2023 14:08:44 08/29/19 24 XR, hip, unila teral , 2 or 3 view [facility] [place] [id number] [address] [phone] Patien t Name: CHEYENNE SEPULVEDA Access ion #: [id number] Sex: F : 1960 1 Dictat ed By: Hemant Chapa ms Attend ing Physic helena: MALLIKA FUNG CE Orderi ng Physic helena: MALLIKA FUNG CE Exam Date: 2023 09:39 AM Exam Name: XR HIP/PE LVIS RT 2-3V Admitt ing Diagno sis(es ): PROCED URE: Right hip radiog raphs. INDICA TION: Pain. TECHNI QUE: 3 views of the right hip were obtain ed. COMPAR AGGIE: None. FINDIN GS: There is no eviden ce of fractu re or disloc ation. Joint spaces are mainta ined. The soft tissue s are unrema rkable . IMPRES NANCY: 1. No fractu re or disloc ation. Electr onical ly Signed by: Hemant Chapa ms at 2023 10:50: 18 AM Page [address] (Imaging) [address] [place] [address], [address], 08/29/2023 12:04:25 08/29/19 24 XR, lumbo sacra l spine , 2 or 3 view [facility] [place] [id number] [address] [phone] Patien t Name: CHEYENNE SEPULVEDA Access ion #: [id number] Sex: F : 1960 1 Dictat ed By: Hemant Chapa ms Attend ing Physic helena: MALLIKA FUNG CE Orderi ng Physic helena: MALLIKA FUNG CE Exam Date: 2023 09:39 AM Exam Name: XR L SPINE 2-3V Admitt ing Diagno sis(es ): PROCED URE: Lumbar spine radiog raphs [facility] INDICA TION: Lower back pain. TECHNI QUE: AP, latera l and obliqu e views of the lumbar spine were perfor med. COMPAR AGGIE: None. FINDIN GS: The lumbar spine verteb ral body height s are mainta ined. Interv ertebr al disc spaces are preser pat. The alignm ent of the lumbar spine is mainta ined. No neural forami nal narrow ing. Prever tebral soft tissue s are unrema rkable . IMPRES NANCY: Unrema rkable radiog raphs of the lumbar spine. Electr onical ly Signed by: Hemant Chapa ms at 2023 11:04: 21 AM Page [address] (Imaging) [address] [place], [address], 08/29/2023 17:07:42 05/04/20 24 05/02/2024 bone densi ty No observ ation record ed. [address], [place], [address], 05/04/2024 13:47:14 07/08/19 25 07/06/2024 MAMMO , scree nathaniel, bilat eral No observ ation record ed. [address] [facility] [address], [place], [address], 07/07/2024 13:57:23 Result Notes None recorded. 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 Not Available [facility] 3 14:48:19 Gastroeso phageal reflux disease 494007725 Active 2020 Not Available [facility] 3 14:48:19 Esophagea l reflux finding 141942933 Completed Not Available [facility] 3 14:48:19 Dyspnea 946537580 Active Not Available [facility] 3 14:48:19 Vitamin D deficienc y 91397480 Active Not Available [facility] 3 14:48:19 Migraine 22502296 Active Not Available [facility] 3 14:48:19 Hernia of abdominal cavity 66567776 Active Not Available [facility] 3 14:48:19 Essential hypertens ion 20218672 Active Not Available [facility] 3 14:48:19 Nodular episcleri tis 82781392 Active Not Available [facility] 3 14:48:19 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 2016 Not Available [facility] 3 14:48:19 Bloating symptom 450062618 Active 2022 Morgan Fung MD [address], [address], [place], [address] , [facility] 3 11:09:00 Dyspnea on exertion 52636521 Active 2022 Morgan Fung MD [address], [address], [place], [address] , [facility] 3 11:10:35 Vitamin D below reference range 852743408 Active 2022 Melissa Ramos null, [place] [facility] 3 15:05:54 Acute sinusitis 50849484 Active 2022 Alfreda Esquivel CMA null, [place] [facility] 3 12:23:54 Low back pain 237913967 Active 2023 Morgan Fung MD [address], [address], [place], [address] , [place] [facility] 4 11:26:31 Pain in right hip joint 32177172365 9102 Active 2023 Tavia Johnson null, [place] [facility] 4 11:36:02 Pure hyperchol esterolem ia 361930318 Active 2023 Morgan Fung MD [address], [address], [place], [address] , [place] [facility] 4 16:01:53 Senile osteoporo sis 90858165 Active 2023 Tavia Johnson null, [facility] 4 13:13:29 Mammograp hy abnormal 969955262 Active 2024 Alfreda CONSTANZA Esquivel null, [facility] 5 10:36:06 Problem Notes None recorded. Procedures Surgical History None recorded. Imaging Results Imaging Date Name Status LastModified by Organ [facility] Details LastModified Time 12/09/2020 MAMMO, screening, digital, bilateral completed [id number] [facility] [address], [place], [address], 07/04/2022 14:51:10 12/09/2020 MAMMO, screening, digital, bilateral completed [id number] [facility] [address], [place], [address], 07/04/2022 14:51:10 12/09/2020 MAMMO, screening, digital, bilateral completed [id number] [facility] [address], [place], [address], 07/04/2022 14:51:10 12/09/2020 MAMMO, screening, digital, bilateral completed [id number] [facility] [address], [place], [address], 07/04/2022 14:51:10 12/09/2020 DEXA, axial skeleton completed [id number] [facility] [address], [place], [address], 07/04/2022 14:51:10 01/12/2021 MAMMO, diagnostic, bilateral completed [id number] [facility] [address], [place], [address], 07/04/2022 14:51:10 02/01/2021 US, breast, bilateral completed [id number] [facility] [address], [place], [address], 07/04/2022 14:51:10 10/18/2022 US, gallbladder completed [address], [place], [address], 10/18/2022 14:27:59 06/27/2023 MAMMO, screening, digital, bilateral completed [address] [facility] [address], [place], [address], 06/27/2023 14:03:11 06/27/2023 MAMMO, screening, digital, bilateral completed [address], [place], [address], 06/27/2023 14:08:44 08/29/2023 XR, hip, unilateral, 2 or 3 view completed [address] (Imaging) [address] [place], [address], 08/29/2023 12:04:25 08/29/2023 XR, lumbosacral spine, 2 or 3 view completed [address] (Imaging) [address] [place], [address], 08/29/2023 17:07:42 05/02/2024 bone density completed [address], [place], [address], 05/04/2024 13:47:14 07/06/2024 MAMMO, screening, bilateral completed [address] [facility] [address], [place], [address], 07/07/2024 13:57:23 Procedure Notes None recorded. Medical Equipment None Reported. Allergies Allergen ID Allergen Name Allergen Category Reaction Reaction Severity Criticality Documentation Date Start Date Code Code System Note Provider Name and Address Organization Details Recorded Time 34118 Isra-Tab medicatio n nausea Not available Not available 07/04/202224682 9 RxNorm Not Available [facility] 3 14:51:05 Medications Name Sig Start Date Stop Date Status Note LastModified by Organization Details LastModified Time Pravachol 40 mg tablet Take 2 tablets every day by oral route at bedtime. 12/17 completed Not Available Not Available Not Available amoxicillin 500 mg capsule Take 1 capsule 3 times a day by oral route for 10 days. 03/17 completed Not Available Not Available Not Available atorvastati n 20 mg tablet Take 1 tablet by mouth once daily 2024 active Not Available Not Available Not Avai lable Zestoretic 10 mg-12.5 mg tablet Take 1 tablet every day by oral route. 2012 active Not Available Not Available Not Avai lable azithromyci n 250 mg tablet TAKE 2 TABLETS (500 MG) BY ORAL ROUTE ONCE DAILY FOR 1 DAY THEN 1 TABLET (250 MG) BY ORAL ROUTE ONCE DAILY FOR 4 DAYS 03/13 completed Not Available Not Available Not Available benzonatate 200 mg capsule TAKE 1 CAPSULE BY MOUTH THREE TIMES DAILY 08/26 completed Not Available Not Available Not Available Patanol 0.1 % eye drops active Not Available Not Available Not Available Elidel 1 % topical cream active Not Available Not Available Not Available ondansetron HCl 4 mg tablet TK 1 T PO ONCE DAILY 09/16 completed Not Available Not Available Not Available alendronate 70 mg tablet Take 1 tablet every week by oral route. 02/26 completed Not Available Not Available Not Available doxycycline hyclate 50 mg capsule Take 1 capsule every day by oral route. 03/17 completed Not Available Not Available Not Available Prilosec 20 mg capsule,del ayed release Take 1 capsule every day by oral route. 2012 active Not Available Not Available Not Avai lable naproxen 250 mg tablet active Not Available Not Available Not Available Zyrtec 10 mg tablet Take 1 tablet every day by oral route. active Not Available Not Available No t Available valacyclovi r 500 mg tablet active Not Available Not Available Not Available aspirin 81 mg tablet,prashanth yed release Take 1 tablet every day by oral route. 02/26 completed Not Available Not Available Not Available Monodox 50 mg capsule Take 1 capsule every day by oral route for 30 days. active Not Available Not Available No t Available benzonatate 100 mg capsule 02/26 completed Not Available Not Available Not Available hydrocodone 7.5 mg-acetamin ophen 325 mg tablet 09/16 completed Not Available Not Available Not Available lisinopril 10 mg tablet Take 1 tablet by mouth once daily 09/16 completed Not Available Not Available Not Available Levaquin 500 mg tablet Take 1 tablet every 24 hours by oral route. 02/02 completed Not Available Not Available Not Available methylpredn isolone 4 mg tablets in a dose pack FOLLOW PACKAGE DIRECTION S 02/26 completed Not Available Not Available Not Available Vitamin D2 1,250 mcg (50,000 unit) capsule Take 1 capsule every week by oral route. 03/17 completed Not Available Not Available Not Available doxycycline hyclate 20 mg tablet TAKE 1 TABLET BY MOUTH TWICE DAILY active Not Available Not Available No t Available fluticasone propionate 50 mcg/actuati on nasal spray,suspe nsion SHAKE LIQUID AND USE 1 SPRAY IN EACH NOSTRIL EVERY DAY 02/26 completed Not Available Not Available Not Available Ambien 5 mg tablet One daily hs for sleep active Not Available Not Available No t Available ipratropium bromide 21 mcg (0.03 %) nasal spray SPRAY 2 PUFFS IN EACH NOSTRIL TWICE DAILY NEEDED 02/26 completed Not Available Not Available Not Available loratadine 10 mg tablet TAKE 1 TABLET BY MOUTH EVERY DAY 09/16 completed Not Available Not Available Not Available diazepam 5 mg tablet 09/16 completed Not Available Not Available Not Available amoxicillin 875 mg-potassiu m clavulanate 125 mg tablet TAKE 1 TABLET BY MOUTH TWICE DAILY FOR 7 DAYS 08/26 completed Not Available Not Available Not Available Multivitami n 50 Plus tablet Take 1 tablet every day by oral route. active Not Available Not Available No t Available magnesium L-lactate ER 84 mg tablet,exte nded release Take 1 tablet every day by oral route. 02/26 completed Not Available Not Available Not Available Zylet 0.3 %-0.5 % eye drops,suspe nsion active Not Available Not Available Not Available magnesium lactate daily 09/16 completed Not Available Not Available Not Available Oracea 40 mg capsule,imm ediate - delay release Take 1 capsule every day by oral route. 2013 active Not Available Not Available Not Avai lable AzaSite 1 % eye drops active Not Available Not Available No t Available Probiotic 2014 active Not Available Not Available Not Avai lable Os-Mago 500 + D3 500 mg-15 mcg (600 unit) tablet Take 1 tablet twice a day by oral route. active Not Available Not Available No t Available Soolantra 1 % topical cream 08/28 completed Not Available Not Available Not Available omega-3 360 mg-dha-epa- fish oil 1,200 mg capsule,del ayed release Take by oral route. 02/26 completed Not Available Not Available Not Available Xiidra 5 % eye drops in a dropperette INSTILL 1 DROP INTO EACH EYE TWICE DAILY active Not Available Not Available No t Available BinaxNOW COVID-19 Ag Self Test kit Use as Directed on the Package 08/28 completed Not Available Not Available Not Available vitamin D3 1,250 mcg (50,000 unit)-vitam in K2 200 mcg capsule Take 1 capsule every day by oral route. 02/26 completed Not Available Not Available Not Available omega 3 850 mg-dha-epa- fish oil 1,400 mg capsule Take 1 capsule every day by oral route. active Not Available Not Available No t Available Vitals Date Recorded Body mass index (BMI) Body height Heart rate Respiratory rate Body temperature Body weight Systolic blood pressure Diastolic blood pressure Provider Name and Address Organization Details Last Updated DateTime 1 26 kg/m2 165.1 cm 70 /min 12 /min 97.4 [degF] 24309.4 1 g 130 mm[Hg] 76 mm[Hg] Not Available [facility] 3 14:47:22 Date Recorded Body height Body mass index (BMI) Body weight Heart rate Body temperature Oxygen saturation Oxygen saturation in Arterial blood by Pulse oximetry Systolic blood pressure Diastolic blood pressure Provider Name and Address Organization Details Last Updated DateTime 3 165.1 cm 26.1 kg/m2 31868 g 61 /min 97 [degF] 96 % 96 % 122 mm[Hg] 78 mm[Hg] Melissa Ramos [employer] [facility] 3 10:46:42 Date Recorded Body height Body mass index (BMI) Body weight Heart rate Body temperature Oxygen saturation Oxygen saturation in Arterial blood by Pulse oximetry Systolic blood pressure Diastolic blood pressure Provider Name and Address Organization Details Last Updated DateTime 3 165.1 cm 25.5 kg/m2 55507.6 3 g 55 /min 97 [degF] 95 % 95 % 120 mm[Hg] 62 mm[Hg] Melissa Ramos [employer] [facility] 3 10:41:16 Date Recorded Body height Body mass index (BMI) Body weight Heart rate Body temperature Oxygen saturation Oxygen saturation in Arterial blood by Pulse oximetry Systolic blood pressure Diastolic blood pressure Provider Name and Address Organization Details Last Updated DateTime 4 165.1 cm 26.1 kg/m2 18746 g 71 /min 97 [degF] 97 % 97 % 122 mm[Hg] 80 mm[Hg] Melissahawk Nielsen [employer] [facility] 4 11:18:35 Date Recorded Body height Body mass index (BMI) Body weight Heart rate Body temperature Oxygen saturation Oxygen saturation in Arterial blood by Pulse oximetry Systolic blood pressure Diastolic blood pressure Provider Name and Address Organization Details Last Updated DateTime 4 165.1 cm 26 kg/m2 33822.4 1 g 77 /min 97 [degF] 98 % 98 % 120 mm[Hg] 86 mm[Hg] ALEJANDRINA Rodriguez [place] [facility] 4 10:47:48 Social History None recorded. Functional Status None recorded. Mental Status None recorded. Family History Nothing Reported Notes:Mother 88 yea rs old HTN, CVA, Dementia, Small tumor Father 89 years old DM, HTN ,CAD, Ca colon and Mesothelioma, CA Bladder 1 Brothers 1 Living HTN CVA 1 Sisters 1 Living Medical History Condition Response NERVE DISEASE N BLINDNESS N RHEUMATIC FEVER N KIDNEY STONES N BLADDER PROBLEMS N MRSA N OTHER # 1 N POLIO N LUNG DISEASE/DISORDER N HISTORY OF DRUG ABUSE N RADIATION / CHEMOTHERAPY N COPD N Other # 2 N BLOOD DISEASES N EAR OR HEARING PROBLEMS N MUMPS N SHINGLES N DEPRESSION (INCLUDING POST ) N BOWEL PROBLEMS N FAILED BACK SYNDROME N STROKE/TIA N ULCERS N BENIGN PROSTATIC HYPERPLASIA N MEASLES N HYPOTENSION N MYOCARDIAL INFARCTION N OBESITY N GERD/NAUSEA N ANEURYSM N URINARY/BLADDER/KIDNEY PROBLEMS N CORONARY ARTERY DISEASE (CAD) N Do you have Advance directive? N ADDICTION CONCERNS N Impotence N ENDOMETRIOSIS N USE OF BLOOD THINNERS N SKIN PROBLEMS N GASTROINTESTINAL DISORDER N PERIPHERAL VASCULAR DISEASE N MUSCLE,JOINT OR BONE PROBLEMS N GASTROINTESTINAL BLEEDING N BLOOD CLOTS N ASTHMA N CATARACTS N Abdominal Pain N ERECTILE DYSFUNCTION N ARTERIAL INSUFFICIENCY N VARICOSITIES N GI PROBLEMS N Low Testosterone N INFERTILITY N AIDS/HIV N CHEMOTHERAPY / RADIATION N LIVER DISEASE N MALE HYPOGONADISM N HYPERTENSION Y Deficiency N TOURETTE'S N ANXIETY DISORDER N BLOOD TRANSFUSION N ANEMIA/BLOOD DISORDER N CHRONIC EAR INFECTIONS N TUBERCULOSIS N GLAUCOMA N FOOT PROBLEM N DIVERTICULITIS N SLEEP APNEA N CHICKENPOX N BACK INJECTIONS N ALLERGIES/HAYFEVER N INFECTIOUS DISEASE N PROSTATE N HEART ARRHYTHMIA N INSOMNIA N ESRD N HIGH CHOLESTEROL / HYPERLIPIDEMIA Y HYPERTHYROIDISM N EYE PROBLEMS N PVD N EDEMA N CHRONIC PAIN SYNDROME N HYPOTHYROIDISM N CONSTIPATION N CAROTID BLOCKAGE N BACK / NECK PROBLEMS N HAVE YOU BEEN HOSPITALIZED OR SEEN IN [place] IN THE PAST YEAR ? N ATHEROSCLEROSIS N BREAST PROBLEMS N DIALYSIS N POLYCYSTIC OVARIES N ECZEMA N OSTEOPOROSIS N ARTHRITIS N NO SIGNIFICANT PAST MEDICAL HISTORY N APPENDICITIS N DIABETES, TYPE N BAD TEETH N VON WILLIBRAND'S DISEASE N ENT N HEARTBURN / REFLUX Y GI N AUTISM SPECTRUM DISORDER (ASD) N POST LAMINECTOMY SYNDROME N HEPATITIS / LIVER DISEASE N GOUT N SLEEP DISORDER N ALZHEIMER'S DISEASE N Brain Problems N HERPES N DEMENTIA N SEIZURES/EPILEPSY N HEADACHES/MIGRAINES Y VASCULAR DISEASE N PACEMAKER N DIZZINESS N KIDNEY DISEASE N HEART DISEASE/HEART PROBLEMS N MULTIPLE SCLEROSIS N NEUROPSYCHOLOGICAL N CARDIAC ARRHYTHMIA N CANCER: SPECIFY N Gall Stones N ATRIAL FIBRILLATION N PULMONARY EMBOLISM N AUTOIMMUNE DISEASE N Gynecological HistoryNo gynecological history recorded. Obstetrics History GPAL:G 0 P 0 0 0 0 Immunizations Vaccine Type Date Status Note Provider Nam e and Address Organization Details Recorded Time SARS-COV-2 (COVID-19) vaccine, UNSPECIFIED 3 completed Melissa hernández [facility] [place] 02/26/2023 10:43:04 influenza, unspecified formulation 3 completed Melissa hernández [facility] 02/26/2023 10:43:27 Respiratory syncytial virus (RSV) vaccine, unspecified 3 completed Melissa Ramos null, [facility] 02/26/2023 10:43:40 Influenza, MDCK, trivalent, PF 4 completed Alfreda Esquivel CMA null, [facility] 06/24/2024 13:52:46 COVID-19, mRNA, LNP-S, bivalent, PF, 50 mcg/0.5 mL or 25mcg/0.25 mL dose 2 completed Not Available [facility] 07/04/2022 14:50:56 Influenza, split virus, quadrivalent, preservative 2 completed Not Available [facility] 07/04/2022 14:50:57 COVID-19, mRNA, LNP-S, PF, 100 mcg/0.5mL dose or 50 mcg/0.25mL dose 2 completed Not Available [facility] 07/04/2022 14:50:57 COVID-19, mRNA, LNP-S, PF, 100 mcg/0.5mL dose or 50 mcg/0.25mL dose 1 completed Not Available [facility] 07/04/2022 14:50:57 SARS-COV-2 (COVID-19) vaccine, UNSPECIFIED 1 completed Not Available [facility] 07/04/2022 14:50:57 SARS-COV-2 (COVID-19) vaccine, UNSPECIFIED 1 completed Not Available [facility] 07/04/2022 14:50:57 Past Encounters Encounter ID Performer Location Encounter Start Date Encounter Closed Date Diagnosis/Indication Diagnosis SNOMED-CT Code Diagnosis ICD10 Code Diagnosis Note [id number] [facility] Internal Med [place] [address] [address] 09/16/2020 00:00:00 09/16/2020 10:49:35 [id number] Morgan Fung MD [facility] [place] Med [place] [address] [address] 08/28/2022 10:34:33 08/28/2022 11:24:55 Adult health examination 348905475 Z00.00 Depression screening 171 874974 Z13.31 Essential hypertension 38784241 I10 Gastroesop hageal reflux disease 439357815 K21.9 Bloating symptom 9514139 00 R14.0 Dyspnea on exertion 6084 5006 R06.09 Vitamin D deficiency 347 60855 E55.9 [id number] [address] [facility] Internal Med [place] [address] [place] [address] y , [place] [id number] 02/26/2023 10:33:59 02/26/2023 11:16:16 Essential hypertension 56613605 I10 Gastroesop hageal reflux disease 108361022 K21.9 Z12.11 Vitamin D deficiency 347 49045 E55.9 [id number] [address] F[address] [facility] Internal [place] [address] [place] [address] y , [place] [address] 08/27/2023 10:48:36 08/27/2023 11:39:42 Essential hypertension 90867264 I10 Hypercholesterolemia 136 52713 E78.00 Low back pain 527679610 M54.50 Vitamin D deficiency 347 17882 E55.9 [id number] [address] F[address] MD [facility] Internal Med [place] [address] [place] [address] y , [place] [address] 02/25/2024 10:38:44 02/25/2024 11:32:36 Adult health examination 062577993 Z00.00 Depression screening 171 532809 Z13.31 Essential hypertension 54453494 I10 Pure hypercholesterolemia 390580345 E78.00 Health Concerns Section Related Observation LastModified by Organization Detai ls LastModified Time None Recorded Concern Status LastModified by Organization Details LastModified Time None Recorded Advance Directives Directive None Recorded Payers Encounter Date Sequence Insurance Name Policy Number Policy Gannon Covered Member ID Gannon Member ID Guarantor Name 08/28/2022 1 [facility] (PPO) Cheyenne Derick [id number] OI Cheyenne Derick 02/26/2023 1 [facility] (PPO) Cheyenne Derick [id number] OI Cheyenne Derick 08/27/2023 1 [facility] (O) [id number] Cheyenne Sepulveda [id number] OI Cheyenne Sepulveda 02/25/2024 1 [facility] (O) [id number] Cheyenne Sepulveda [id number] OI Cheyenne Sepulveda Notes Date Note Type Note Provider Name and Address Organization Details Recorded Time 3 text/htm l Patient Name: Cheyenne SepulvedaDate Of Service: Saturday ( 08.28.2022 ): 1960 Age: 62 Chief Complaint: Addressed in HPI Problems or conditions discussed in the HPI were the only ones reviewed during the encounter.Only social and family history addressed in the HPI were reviewed during this encounter. Attendant(s): None Constitutional and Systemic Symptoms: none Medication Reconciliation: from medication list. History of Present Illness In for a well patient check up. Last well patient evaluation was approximately one year. No interval complaints of any major medical problems. No hx of any chest pain, shortness of breath, nausea, vomiting, diarrhea or constitutional symptoms. Also being followed for other chronically monitored problems.Has Had A Mammogram dueHas Had A Pap Smear NAImmunizations Up To Date or refuses to takeNo Significant Change In Family HxColonoscopy or Cologuard: dueFall Risk normalDepression Score: 0Hearing normalVision normalReviewed Smoking and Drug HistoryReviewed Immunization HistoryInstructed on importance of weight on diabetes, heart and other diseases aggravated by obesity. #1. Essential Hypertension: Stage: Stage I Interval Neurological Complaints no headaches, dizziness, weakness, visual changes, ataxia, aphasia and apraxia. No shortness of breath, orthopnea or cardiovascular symptoms. No other symptoms related to end organ damage. Pressure has been under excellent control. Currently normal. No other end organ symptoms or findings. Therapy reviewed regarding management of hypertension and includes salt restriction. #2. Hx of esophageal reflux currently stable. Hx of Complications: none The severity, duration and intensity of symptoms have improved. Frequency: most meals Treatment o consists no medications taken on a regular basis. Current therapy includes no medication. There has been no nausea, eructation, vomiting, hematemesis, dysphagia, velopharyngeal insufficiency and odynophagia. No change in he frequency or intensity of symptoms. Has domenic no melena. Has had no hematemesis. Discuss the possibility of trying to reduce the frequency of the use of any PPI inhibitors or H2 antagonist to see if symptoms can be controlled with last intensive therapy#3. Intermittent bloating secondary to ingestion of food. Does consume quite large quantities of lactose which may be a contributing factor. Is overdue for colonoscopy. Has had some symptoms of reflux symptomatology as well.d#4. Has noticed some increased shortness of breath exertion particularly when it is walking up steps. Also noticed at nighttime particularly in recumbent position intermittent pain in the left shoulder down the outer aspect of the arm. Associated with any orthopnea, PND or other cardiovascular symptoms. Does occasionally have pain and discomfort between the shoulder blades. Not related to exertion nor relieved by rest. Not present on a regular basis.Medication List Reviewed and Reconciled 08/28/2022oxycycline 20 MG (TABLET - ORAL) One DailyOs-mago D One BidADRs List Reviewed 08/28/2022Ery Tab Gi UpsetPravachol MyalgiaVaccination and Hwvppbkofksx0170-41 Covid Booster Jgrsqne8127-38 Covid Tzsamgy3844-78 Snyukvxn1439-70 InfluenzaSurgical HistorySeptoplasty, Septoplasty, HysterectomyPreventative Testing Confirmed by Our Hieubmh6912/09/2020 MAMMOGRAM DEXA SCAN05/16/2020 ALBUMIN 5.0 G/DL H006/11/2016 COLONOSCOPY (5 YEARS) LETTER OPHTHALMOLOGYSocial HistorySOCIAL HISTORY:Marital Status: MLiving Status: With SpouseOccupational Exposure:Does not smoke cigarettes. Drinking Hx: 16 oz of tea per day, 48 oz of soft drinks per day.Exercise: WeeklySexual Hx: Sexually ActiveOccupation: TeacherFamily HistoryFAMILY HISTORY:Mother 88 years old HTN, CVA, Dementia, Small tumorFather Living 84 years old DM, HTN ,CAD, Ca colon and Mesothelioma1 Brothers 1 Living HTN CVA1 Sisters 1 Living Morgan Fung MD [address] [facility], [place], [address], [facility] [place] 08/28/2022 11:16:44 3 text/htm l Patient Name: Cheyenne Hand Of Service: Saturday ( 02.26.2023 ): 1960 Age: 62 Vital Signs:Blood Pressure: Sitting Rt. Arm 120/62Pulse: Sitting 55 /min and RegularRespiratory Rate: 12Height 65 in or 1.7 mWeight 153 lb or 69.4 kgBMI 25.5Temperature: 97 F or 36.1 CPulse Oximetry: 95 % at rest on no oxygen Chief Complaint: Addressed in HPI Problems or conditions discussed in the HPI were the only ones reviewed during the encounter.Only social and family history addressed in the HPI were reviewed during this encounter. Attendant(s): NoneConstitutional and Systemic Symptoms:none Medication Reconciliation: from medication list. Rsfbolckdiu59/01/2023: Upper and lower endoscopy demonstrated no significant anomalies. Due to the fact that she has a family history of colon cancer will need a repeat colonoscopy in five years. Upper endoscopy was essentially negative.10/18/2022: Ultrasound the gallbladder demonstrated a small gallbladder polyp but no evidence any cholecystitis or cholelithiasis. History of Present Illness #1. Essential Hypertension: Stage: Stage I Interval Neurological Complaints no headaches, dizziness, weakness, visual changes, ataxia, aphasia and apraxia. No shortness of breath, orthopnea or cardiovascular symptoms. No other symptoms related to end organ damage. Pressure has been under excellent control. Currently normal. No other end organ symptoms or findings. Therapy reviewed regarding management of hypertension and includes salt restriction and weight loss. #2. Hx of esophageal reflux currently stable. Hx of Complications: none The severity, duration and intensity of symptoms have improved. Frequency: infrequent Treatment consists medications taken on no regular basis. Current therapy includes no medication. There has been no nausea, eructation, vomiting, hematemesis, dysphagia, velopharyngeal insufficiency and odynophagia. No change in he frequency or intensity of symptoms. Has had no melena. Has had no hematemesis. Discuss the possibility of trying to reduce the frequency of the use of any PPI inhibitors or H2 antagonist to see if symptoms can be controlled with last intensive therapy #3. History of vitamin-D deficiency in the past in the and hyper but mitosis D. Last vitamin-D level was 69 within acceptable ranges.:Medication List Reviewed and Reconciled 02/26/2023oxycycline 20 MG (TABLET - ORAL) One DailyOs-mago D One BidADRs List Reviewed 02/26/2023Ery Tab Gi UpsetPravachol MyalgiaVaccination and Bjyvzrlmmwlr9615-00 Nnr2636-86 Ljdwdghrg9421-29 Covid Booster Csvumfm0249-54 Covid Zmwljug8132-65 ShingrixSurgical HistorySeptoplasty, Septoplasty, HysterectomyPreventative Testing Confirmed by Our Rippzgr1610/12/2022 ALBUMIN 4.9 G/DL H010/04/2022 UPPER HLTJTTXAT54/01/2023 COLONOSCOPY ( 5 YEARS ) 808/10/2020 MAMMOGRAM DEXA SCAN02/20/2012 LETTER OPHTHALMOLOGYSocial HistorySOCIAL HISTORY:Marital Status: MLiving Status: With SpouseOccupational Exposure:Does not smoke cigarettes. Drinking Hx: 16 oz of tea per day, 48 oz of soft drinks per day.Exercise: WeeklySexual Hx: Sexually ActiveOccupation: TeacherFamily HistoryFAMILY HISTORY:Mother 88 years old HTN, CVA, Dementia, Small tumorFather Living 84 years old DM, HTN ,CAD, Ca colon and Mesothelioma, CA Bladder1 Brothers 1 Living HTN CVA1 Sisters 1 Living Morgan Fung MD [address], [address], [facility] 02/26/2023 11:06:28 4 text/htm l Patient Name: Cheyenne Hand Of Service: Saturday ( 08.27.2023 ): 1960 Age: 63 There has been approximately a 4 lb weight gain since 02/26/2023. This represents approximately a 2.6% change in weight. Weight change attributable to lifestyle changes. Vital Signs:Blood Pressure: Sitting Rt. Arm 122/80Pulse: Sitting 71 /min and RegularRespiratory Rate: 12Height 65 in or 1.7 mWeight 157 lb or 71.2 kgBMI 26.1Temperature: 97 F or 36.1 CPulse Oximetry: 97 % at rest on no oxygen Chief Complaint: Addressed in HPI Problems or conditions discussed in the HPI were the only ones reviewed during the encounter.Only social and family history addressed in the HPI were reviewed during this encounter. Attendant(s): NoneConstitutional and Systemic Symptoms:none Medication Reconciliation: from medication list. Weiacefqggj53/01/2023: Upper and lower endoscopy demonstrated no significant anomalies. Due to the fact that she has a family history of colon cancer will need a repeat colonoscopy in five years. Upper endoscopy was essentially negative. 10/18/2022: Ultrasound the gallbladder demonstrated a small gallbladder polyp but no evidence any cholecystitis or cholelithiasis. History of Present Illness #1. Essential Hypertension: Stage: Stage I Interval Neurological Complaints no headaches, dizziness, weakness, visual changes, ataxia, aphasia and apraxia. No shortness of breath, orthopnea or cardiovascular symptoms. No other symptoms related to end organ damage. Pressure has been under excellent control. Currently normal. No other end organ symptoms or findings. Therapy reviewed regarding management of hypertension and includes salt restriction. #2. History of hypercholesterolaemia: History of the high cholesterol. Not taking any medications and being controlled by diet. No interval complaints of any chest pain, shortness of breath, orthopnea or other cardiovascular complaints. Last lipid panel: no testing done recently #3. Complaining of pain in the right sacroiliac area radiating down the posterior aspect of the leg on the right hand side to the level of approximately the knee. Had trauma approximately three years ago fell. Had a large ecchymotic area over the hamstring. Is having no pain or discomfort on a regular basis but intermittently down the lower back down the posterior aspect of the leg which is probably more related to a fall she did several years ago. No incontinence of urine or stool. No history of any saddle anesthesia.: Active Medication ListDoxycycline 20 MG (TABLET - ORAL) One DailyOs-mago D One Twice A DayOmega-3 DailyZyrtec Daily As NeededXiidra DailyMultivitamin Daily Adverse Drug Reactions ReviewedEry Tab Gi UpsetPravachol Myalgia Vaccination and Atoyvrhnfntf4735-92 Dot1666-48 Yurxmhbqf1702-86 Covid Booster Tjfxyfc2114-90 Covid Sgmyoxl8963-64 Shingrix Surgical Legygjv4881-19 Ebsiqkftvgj2594-83 Izlmgmuorgg5694-79 Hysterectomy Preventative Pqlylme0506/27/2023 MAMMOGRAM /2024 LYVRSIRZOXORR94/09/2023 ALBUMIN 4.9 G/DL H010/04/2022 UPPER AXKDVMEQK30/01/2023 COLONOSCOPY ( 5 YEARS ) DEXA SCAN Social HistorySOCIAL HISTORY:Marital Status: MLiving Status: With SpouseOccupational Exposure:Does not smoke cigarettes. Drinking Hx: 16 oz of tea per day, 48 oz of soft drinks per day.Exercise: WeeklySexual Hx: Sexually ActiveOccupation: TeacherFamily HistoryFAMILY HISTORY:Mother 88 years old HTN, CVA, Dementia, Small tumorFather 89 years old DM, HTN ,CAD, Ca colon and Mesothelioma, CA Bladder1 Brothers 1 Living HTN CVA1 Sisters 1 Living Morgan Fung MD [address], [address], [facility] 08/27/2023 11:32:14 4 text/htm l Patient Name: Cheyenne Hand Of Service: Saturday ( 02.25.2024 ): 1960 Age: 63 Vital Signs:Blood Pressure: Sitting Rt. Arm 120/86Pulse: Sitting 77 /min and RegularRespiratory Rate: 16Height 65 in or 1.7 mWeight 156 lb or 70.8 kgBMI 26.0Temperature: 97 F or 36.1 CPulse Oximetry: 98 % at rest on no oxygen Chief Complaint: Addressed in HPI Problems or conditions discussed in the HPI were the only ones reviewed during the encounter.Only social and family history addressed in the HPI were reviewed during this encounter. Attendant(s): NoneConstitutional and Systemic Symptoms:none Medication Reconciliation: by patient. Cohrddjpple72/01/2023: Upper and lower endoscopy demonstrated no significant anomalies. Due to the fact that she has a family history of colon cancer will need a repeat colonoscopy in five years. Upper endoscopy was essentially negative. 10/18/2022: Ultrasound the gallbladder demonstrated a small gallbladder polyp but no evidence any cholecystitis or cholelithiasis. History of Present Illness In for a well patient check up. Last well patient evaluation was approximately one year. No interval complaints of any major medical problems. No hx of any chest pain, shortness of breath, nausea, vomiting, diarrhea or constitutional symptoms. Also being followed for other chronically monitored problems.Has Had A Mammogram already doneHas Had A Pap Smear dueImmunizations Up To Date or refuses to takeNo Significant Change In Family HxColonoscopy or Cologuard: not dueFall Risk normalDepression Score: 0PHQ-9 Score [IndicatedHearing normalVision normalReviewed Smoking and Drug HistoryReviewed Immunization HistoryInstructed on importance of weight on diabetes, heart and other diseases aggravated by obesity. #1. Essential Hypertension: Stage: normal Interval Neurological Complaints no headaches, dizziness, weakness, visual changes, ataxia, aphasia and apraxia. No shortness of breath, orthopnea or cardiovascular symptoms. No other symptoms related to end organ damage. Pressure has been under excellent control. Currently normal. No other end organ symptoms or findings. Therapy reviewed regarding management of hypertension and includes salt restriction. #2. Type II Hypercholesterolaemia: Currently taking medication and tolerating well. No interval complaints of any muscle pain or arthralgia. No significant liver changes with medications. Last lipid panel: no testing since starting on medication. Therapy reviewed regarding treatment of cholesterol management and include diet and Atorvastatin Calcium. Active Medication ListDoxycycline 20 MG (TABLET - ORAL) One DailyOs-mago D One Twice A DayOmega-3 DailyZyrtec Daily As NeededXiidra DailyMultivitamin DailyAtorvastatin Calcium 20 MG TABLET One Daily Adverse Drug Reactions ReviewedEry Tab Gi UpsetPravachol Myalgia Vaccination and Immunization(X) 2022- INFLUENZA( ) 2019- SHINGRIX( ) 2020- COVID MODERNA( ) 2020- COVID [address](X) 2023-02 COVID BOOSTER MODERNA( ) 2023-02 RSV Surgical Vgzorjn1893-86 Grtjfnqynlp1976-34 Bfcupjwjaqw5274-42 Hysterectomy Preventative Testing( ) 01/02/2024 Albumin 4.7 G/DL( ) 11/22/2023 Ophthalmology( ) 06/27/2023 Mammogram 06/27/2024( ) 10/04/2022 Upper Endoscopy( ) 10/04/2022 Colonoscopy ( 5 Years ) 10/05/2027(X) 12/09/2020 DEXA Scan 12/09/2022 Social HistorySOCIAL HISTORY:Marital Status: MLiving Status: With SpouseOccupational Exposure:Does not smoke cigarettes. Drinking Hx: 16 oz of tea per day, 48 oz of soft drinks per day.Exercise: WeeklySexual Hx: Sexually ActiveOccupation: TeacherFamily HistoryFAMILY HISTORY:Mother 88 years old HTN, CVA, Dementia, Small tumorFather 89 years old DM, HTN ,CAD, Ca colon and Mesothelioma, [place] Bladder1 Brothers 1 Living HTN CVA1 Sisters 1 Living Morgan Fung MD [address] [facility], [facility] [address], [place], [address], [facility] 02/25/2024 11:25:31 OBGyn Episode No OBEpisode recorded.
== END 2024-07-28 10:14 | disposition home or self-care (01) ==
PROVIDERS: PCP Internal Medicine; Visit Provider Internal Medicine
DX: R92.8 Other abnormal and inconclusive findings on diagnostic imaging of breast (principal)
CPT/HCPCS: 76642; 77061; 77065; G0279